=== PATIENT | female | born 1975 | race Caucasian/White ===

== ENCOUNTER → 2023-02-05 | Outpatient (CLI) | payer OTHER ==
--- NOTE | 2023-02-05 13:16 | MR ---
PRE AND POSTCONTRAST ENHANCED MRI OF THE BRAIN: CLINICAL HISTORY: R20.0 ANESTHESIA OF SKIN CONTRAST: 6ml gadavist Multiplanar and multispin-echo imaging of the brain was performed both before and after the administr ation of contrast. The ventricles, basal cisterns and sulci overlying the cerebral convexities are within normal limits. There is no evidence for midline shift or mass effect. Acute intracranial hemorrhage or extra-axial collection is not evident. There are no abnormal areas of increased or decreased signal intensity within the brain parenchyma. 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 Mass measures 1.5 x 1.4 cm. Intracanalicular component measure s 5.3 mm in length. There is mild mass effect upon the adjacent mary. The paranasal sinuses and mastoid air cells are well-aerated. 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 Mass measures 1.5 x 1.4 cm. Intracanalicular component measure s 5.3 mm in length. There is mild mass effect upon the adjacent mary.
== END | disposition home or self-care (01) ==
LOC: RADMRIMAIN 11:30
PROVIDERS: ATTEND Family Medicine
DX: G31.9 Degenerative disease of nervous system, unspecified (principal); R20.0 Anesthesia of skin
CPT/HCPCS: 70553; A9585